=== PATIENT | male | born 1960 | race Caucasian/White ===

== ENCOUNTER 2019-02-06 19:27 | Emergency (ER) | payer OTHER ==
[~2019-02-06] VITALS: Ht 177.8 cm; Wt 104.2 kg
[~2019-02-06 19:27] MED LIST: FOLI1TAB16 PO; FURO20TA4 PO; LACT10SO32 PO; MULT-1085 PO; NADO20TA PO; PANT40TA4 PO; RIFA550T PO; THIA100T66 PO
[2019-02-06] MEDS ORDERED: BISA-155 PO (23:19)
[2019-02-06] MEDS ORDERED: POLY119P2 PO (23:19)
[2019-02-06 23:45] VITALS: BP 139/85
== END 2019-02-06 23:46 | disposition home or self-care (01) ==
LOC: ER 19:30
DX: K59.00 Constipation, unspecified (principal); R10.84 Generalized abdominal pain; I10 Essential (primary) hypertension; F10.10 Alcohol abuse, uncomplicated; Z79.899 Other long term (current) drug therapy; Y90.9 Presence of alcohol in blood, level not specified
CPT/HCPCS: 99284

== ENCOUNTER 2019-02-11 17:21 | Emergency (ER) | payer OTHER ==
[~2019-02-11] VITALS: Ht 177.8 cm; Wt 106.8 kg
[~2019-02-11 17:21] MED LIST changes: +BISA-155 PO; +POLY119P2 PO
[2019-02-11 18:15] LABS: BASOPHILS % (AUTO) 0.7 % (0-1); EOSINOPHILS # (AUTO) 0.2 X10'3 (0-0.9); EOSINOPHILS % (AUTO) 2.8 % (0-6); HEMATOCRIT 32.3 % (42.0-52.0); HEMOGLOBIN 10.9 g/dl (14.0-17.9); LYMPHOCYTES # (AUTO) 1.2 X10'3 (1.1-4.8); LYMPHOCYTES % (AUTO) 16.3 % (21-51); MEAN CORPUSCULAR HEMOGLOBIN 30.4 PG (27.0-31.0); MEAN CORPUSCULAR HGB CONC 33.8 g/dL (33.0-36.5); MEAN CORPUSCULAR VOLUME 90.1 FL (78-98); MEAN PLATELET VOLUME 8.2 FL (7.4-10.4); MONOCYTES # (AUTO) 1.7 X10'3 (0-0.9); MONOCYTES % (AUTO) 22.6 % (2-12); NEUTROPHILS # (AUTO) 4.2 X10'3 (1.8-7.7); NEUTROPHILS % (AUTO) 57.6 % (42-75); PLATELET COUNT 232 X10'3 (140-440); RED BLOOD COUNT 3.59 X10'6 (4.70-6.10); RED CELL DISTRIBUTION WIDTH 15.8 % (11.5-14.5); WHITE BLOOD COUNT 7.3 X10'3 (4.5-11.0)
[2019-02-11 18:24] LABS: CLARITY,URINE CLEAR (Clear); COLOR,URINE STRAW (Yellow); GLUCOSE, URINE NEGATIVE (Neg); KETONES,URINE NEGATIVE (Neg); LEUKOCYTE ESTERASE ,URINE NEGATIVE (Neg); NITRITES, URINE NEGATIVE (Neg); OCCULT BLOOD,URINE NEGATIVE (Neg); PROTEIN,URINE NEGATIVE (Neg); UROBILINOGEN,URINE 0.2 E.U/dL (0.2-1.0)
[2019-02-11 18:28] LABS: ALANINE AMINOTRANSFERASE 60 U/L (12-78); ALBUMIN 2.8 G/DL (3.4-5.0); ALBUMIN/GLOBULIN RATIO 0.7 (1.1-1.5); ALKALINE PHOSPHATASE 63 IU/L (46-116); ANION GAP 12 (8-16); ASPARTATE AMINO TRANSFERASE 57 U/L (10-37); BILIRUBIN,TOTAL 1.3 MG/DL (0.1-1.0); BLOOD UREA NITROGEN 8 MG/DL (7-18); BUN/CREATININE RATIO 7.9 (5.4-32.0); CALCIUM 8.6 MG/DL (8.5-10.1); CHLORIDE 104 MMOL/L (99-107); CREATININE 1.01 MG/DL (0.60-1.10); GLUCOSE 103 MG/DL (70-104); LIPASE 250 U/L (73-393); SODIUM 138 MMOL/L (135-145); TOTAL CARBON DIOXIDE 22.1 MMOL/L (24-32); TOTAL PROTEIN 7.1 G/DL (6.4-8.2); eGFR 76 ML/MIN
[2019-02-11 18:33] LABS: POTASSIUM 2.7 MMOL/L (3.5-5.1)
[2019-02-11 18:43] LABS: UA COLLECTION TYPE CLN CATCH MIDSTREAM
[2019-02-11] MEDS ORDERED: magnesium oxide 400mg tablet PO ONE (18:45)
[2019-02-11] MEDS ORDERED: potassium Cl 20 mEq SR tablet PO ONE (18:45)
[2019-02-11 18:50] LABS: MAGNESIUM 1.7 MG/DL (1.5-2.4)
[2019-02-11 18:52] VITALS: BP 140/84
[2019-02-11] MEDS ORDERED: MAGN200T8 PO (19:22)
[2019-02-11 19:26] LABS: PLATELET ESTIMATE NORMAL; TOTAL CELLS COUNTED 100; TOXIC VACUOLATION 2+
[2019-02-11 19:27] LABS: POLYCHROMASIA 1+
== END 2019-02-11 19:44 | disposition home or self-care (01) ==
LOC: ER 17:22
DX: E87.6 Hypokalemia (principal); E83.42 Hypomagnesemia; I10 Essential (primary) hypertension; Z79.899 Other long term (current) drug therapy
CPT/HCPCS: 36415; 74021; 80053; 81003; 83690; 83735; 85025; 85610; 99284

== ENCOUNTER 2022-12-18 15:34 | Inpatient (IN) | payer OTHER, BC ==
[~2022-12-18] VITALS: Ht 177.8 cm; Wt 109.1 kg
[~2022-12-18 15:34] MED LIST changes: -FOLI1TAB16 PO; +FOLI1TAB27 PO; -LACT10SO32 PO; +LACT10SO78 PO; +MAGN200T8 PO; -NADO20TA PO; +NADO20TA36 PO; -PANT40TA4 PO; +PANT40TA54 PO
[2022-12-18 16:07] LABS: BASOPHILS % (AUTO) 0.4 % (0-1); EOSINOPHILS # (AUTO) 0.1 X10'3 (0-0.9); LYMPHOCYTES # (AUTO) 1.1 X10'3 (1.1-4.8); LYMPHOCYTES % (AUTO) 17.1 % (21-51); MEAN CORPUSCULAR HEMOGLOBIN 23.6 PG (27.0-31.0); MEAN CORPUSCULAR VOLUME 76.2 FL (78-98); MEAN PLATELET VOLUME 7.7 FL (7.4-10.4); MONOCYTES # (AUTO) 0.7 X10'3 (0-0.9); MONOCYTES % (AUTO) 10.7 % (2-12); NEUTROPHILS # (AUTO) 4.7 X10'3 (1.8-7.7); NEUTROPHILS % (AUTO) 70.8 % (42-75); PLATELET COUNT 242 X10'3 (140-440); RED BLOOD COUNT 2.53 X10'6 (4.70-6.10); RED CELL DISTRIBUTION WIDTH 22.6 % (11.5-14.5); WHITE BLOOD COUNT 6.6 X10'3 (4.5-11.0)
[2022-12-18 16:09] LABS: HEMATOCRIT 19.3 % (42.0-52.0)
[2022-12-18 16:19] LABS: ALANINE AMINOTRANSFERASE 18 U/L (12-78); ALBUMIN 3.5 G/DL (3.4-5.0); ALBUMIN/GLOBULIN RATIO 1.1 (1.1-1.5); ALKALINE PHOSPHATASE 75 IU/L (46-116); ANION GAP 9 (8-16); ASPARTATE AMINO TRANSFERASE 10 U/L (10-37); BILIRUBIN,TOTAL 1.1 MG/DL (0.1-1.0); BLOOD UREA NITROGEN 14 MG/DL (7-18); BUN/CREATININE RATIO 12.2 (10.0-20.0); CALCIUM 8.1 MG/DL (8.5-10.1); CHLORIDE 107 MMOL/L (99-107); CREATININE 1.15 MG/DL (0.60-1.10); GLUCOSE 101 MG/DL (70-104); POTASSIUM 3.8 MMOL/L (3.5-5.1); SODIUM 141 MMOL/L (135-145); TOTAL CARBON DIOXIDE 25.5 MMOL/L (24-32); TOTAL PROTEIN 6.6 G/DL (6.4-8.2); eGFR 65 ML/MIN
[2022-12-18 17:03] LABS: PLATELET ESTIMATE NORMAL
[2022-12-18 17:04] LABS: HYPOCHROMASIA 3+
[2022-12-18 17:09] LABS: ANISOCYTOSIS 3+; MICROCYTOSIS 1+; POIKILOCYTOSIS 1+
[2022-12-18 18:53] LABS: OCCULT BLOOD STOOL NEGATIVE (Neg)
[2022-12-18 19:05] LABS: % IRON SATURATION 2 % (11-46); IRON 12 UG/DL (53-167); TOTAL IRON BINDING CAPACITY 509 UG/DL (259-388)
[2022-12-18 19:06] LABS: FERRITIN 5 NG/ML (26-388)
[2022-12-18] MEDS ORDERED: FERR325T28 PO (19:17)
[2022-12-18 19:18] VITALS: BP 120/63
[2022-12-18 19:39] VITALS: BP 118/59
--- NOTE | 2022-12-18 19:43 | NUR ---
PT TOLERATING BLOOD TRANSFUSION WELL; ONE UNIT PRBCS INFUSING WITHOUT COMPLICATION THROUGH 18 G TO LEFT HAND; VSS; NAD; PT VOICES NO COMPLAINTS; RATE STARTED AT 60 ML/HR AND INCREASED AFTER FIRST 15 MIN OF TRANSFUSION TO INFUSE WITHIN TWO HOURS ORDERED; ALL NECESSARY MONITORING EQUIPMENT IN PLACE; BED IN LOW POSITION; SIDE RAILS UP; CALL LIGHT WITHIN REACH; FAMILY AT BEDSIDE; PT STATES NO CURRENT NEEDS
[2022-12-18 20:39] VITALS: BP 118/60
[2022-12-18 21:17] VITALS: BP 133/76
--- NOTE | 2022-12-18 21:36 | NUR ---
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
[2022-12-18 21:43] LABS: BASOPHILS % (AUTO) 0.5 % (0-1); EOSINOPHILS # (AUTO) 0.1 X10'3 (0-0.9); EOSINOPHILS % (AUTO) 1.6 % (0-6); LYMPHOCYTES # (AUTO) 1.1 X10'3 (1.1-4.8); LYMPHOCYTES % (AUTO) 26.8 % (21-51); MEAN CORPUSCULAR HEMOGLOBIN 25.3 PG (27.0-31.0); MEAN CORPUSCULAR HGB CONC 32.7 g/dL (33.0-36.5); MEAN CORPUSCULAR VOLUME 77.3 FL (78-98); MEAN PLATELET VOLUME 7.2 FL (7.4-10.4); MONOCYTES # (AUTO) 0.5 X10'3 (0-0.9); MONOCYTES % (AUTO) 10.8 % (2-12); NEUTROPHILS # (AUTO) 2.5 X10'3 (1.8-7.7); NEUTROPHILS % (AUTO) 60.3 % (42-75); PLATELET COUNT 154 X10'3 (140-440); RED CELL DISTRIBUTION WIDTH 22.2 % (11.5-14.5); WHITE BLOOD COUNT 4.2 X10'3 (4.5-11.0)
[2022-12-18 21:46] LABS: HEMOGLOBIN 6.1 g/dl (14.0-17.9)
[2022-12-18 21:47] LABS: HEMATOCRIT 18.6 % (42.0-52.0)
[2022-12-18 22:29] LABS: MEAN CORPUSCULAR HEMOGLOBIN 24.6 PG (27.0-31.0); MEAN CORPUSCULAR HGB CONC 31.4 g/dL (33.0-36.5); MEAN CORPUSCULAR VOLUME 78.2 FL (78-98); MEAN PLATELET VOLUME 7.4 FL (7.4-10.4); PLATELET COUNT 156 X10'3 (140-440); RED BLOOD COUNT 2.37 X10'6 (4.70-6.10); RED CELL DISTRIBUTION WIDTH 22.4 % (11.5-14.5); WHITE BLOOD COUNT 3.5 X10'3 (4.5-11.0)
[2022-12-18 22:32] LABS: HEMATOCRIT 18.5 % (42.0-52.0); HEMOGLOBIN 5.8 g/dl (14.0-17.9)
[2022-12-18] MEDS ORDERED: octreotide 100mcg/1 ml ampule IV ONE (22:35)
[2022-12-18] MEDS ORDERED: octreotide inj. 1,250 MCG in normal saline 250ml IV soln 250 ML IV SCH (22:35)
[2022-12-18] MEDS ORDERED: pantoprazole 40mg IV 80 MG in normal saline 100ml IV soln 100 ML IV ONE (22:35)
[2022-12-18] MEDS ORDERED: octreotide inj. 1,250 MCG in normal saline 250ml IV soln 243.75 ML IV SCH (22:48)
--- NOTE | 2022-12-18 23:09 | NUR ---
PT TO CT AT THIS TIME
[2022-12-18] MEDS ORDERED: iohexol 350MG/ML 100ml bottle IV ONE (23:27)
[2022-12-18 23:34] VITALS: BP 131/66
[2022-12-18 23:49] VITALS: BP 122/59
--- NOTE | 2022-12-18 23:59 | NUR ---
SECOND UNIT OF BLOOD TRANSFUSING WELL, WITHOUT COMPLICATIONS; STARTED AT 120 ML/HR FOR FIRST 15 MIN AND THEN INCREASED TO INFUSE MORE QUICKLY TOLERATED PER ORDER RECEIVED; PT TOLERATING WELL; VSS; NAD; ALL NECESSARY MONITORING EQUIPMENT IN PLACE
[2022-12-19] VITALS (7 sets, daily range): BP systolic 120–140; BP diastolic 59–78
[2022-12-19 00:28] LABS: ABSOLUTE RETICS # < 6000 /CUMM (23000-93000); RETICULOCYTE % (AUTO) 2.3 % (0.5-1.5)
[2022-12-19] MEDS ORDERED: acetaminophen 325mg tablet PO PRN (00:45)
[2022-12-19] MEDS ORDERED: normal saline 1000ml 1,000 ML IV SCH (00:45)
[2022-12-19] MEDS ORDERED: potassium Cl 40MEQ/1/2NS 520ml 520 ML IV PRN (00:45)
[2022-12-19] MEDS ORDERED: magnesium 4gm in 100ml NS 100 ML IV PRN (00:45)
[2022-12-19] MEDS ORDERED: magnesium hydroxide 30ml (MOM) UD suspension PO PRN (00:45)
[2022-12-19] MEDS ORDERED: magnesium Cl slow-release 64mg tablet PO PRN (00:45)
[2022-12-19] MEDS ORDERED: ondansetron/PF 4mg/2ml inj IV PRN (00:45)
[2022-12-19] MEDS ORDERED: mag hydrox/Alum hydrox/simeth 30ml oral suspension PO PRN (00:45)
[2022-12-19] MEDS ORDERED: magnesium 2GM in 50ml NS 50 ML IV PRN (00:45)
[2022-12-19] MEDS ORDERED: potassium Cl 20 mEq SR tablet PO PRN ×2 (00:45)
[2022-12-19] MEDS ORDERED: pantoprazole 40MG/NS 100ML BAG 100 ML IV SCH (01:00)
--- NOTE | 2022-12-19 02:33 | NUR ---
Received report from CABANA ATTENDANTCORA Dillon. Patient to follow shortly.
[2022-12-19 03:50] LABS: HEMATOCRIT 22.7 % (42.0-52.0); HEMOGLOBIN 7.5 g/dl (14.0-17.9); MEAN CORPUSCULAR HGB CONC 32.8 g/dL (33.0-36.5); MEAN CORPUSCULAR VOLUME 79.2 FL (78-98); MEAN PLATELET VOLUME 7.5 FL (7.4-10.4); PLATELET COUNT 148 X10'3 (140-440); RED BLOOD COUNT 2.87 X10'6 (4.70-6.10); RED CELL DISTRIBUTION WIDTH 20.6 % (11.5-14.5); WHITE BLOOD COUNT 3.6 X10'3 (4.5-11.0)
[2022-12-19 03:55] LABS: MAGNESIUM 1.8 MG/DL (1.5-2.4)
[2022-12-19] MEDS ORDERED: pantoprazole 40 MG/NS 100ML add-vantage BAG IV ONE (05:00)
--- NOTE | 2022-12-19 05:09 | NUR ---
patient arrived to floor at 0300 via gurney from ER. A&O and transferred himself over from rwilson to bed. Denies having any pain or dizziness at this time.
--- NOTE | 2022-12-19 06:30 | NUR ---
Problems reprioritized. Patient report given, questions answered & plan of care reviewed with Kit SHEPHERD.
--- NOTE | 2022-12-19 06:56 | NUR ---
Patient in room [facility]TH[facility] 4009. I have received report from CAROLINE SHEPHERD and had the opportunity to ask questions and assume patient care.
[2022-12-19] MEDS ORDERED: pantoprazole 40mg Tablet.DR PO SCH (07:00)
[2022-12-19] MEDS ORDERED: rifaximin 550mg tablet PO SCH (08:00)
[2022-12-19] MEDS: lactulose 20gm/30ml cup PO SCH ×2 (08:00→08:18)
[2022-12-19] MEDS ORDERED: ferrous sulfate 325mg tablet PO SCH (08:00)
[2022-12-19] MEDS ORDERED: K and/or MAG REPLACEMENT MC SCH (08:00)
[2022-12-19] MEDS ORDERED: furosemide 20MG tablet PO SCH (08:00)
[2022-12-19] MEDS ORDERED: thiamine 100mg tablet PO SCH (08:00)
[2022-12-19] MEDS ORDERED: folic acid 1mg tablet PO SCH (08:00)
[2022-12-19] MEDS ORDERED: metoprolol tartrate 25mg tablet PO SCH (08:00)
[2022-12-19] MEDS ORDERED: docusate sod 100mg capsule PO SCH (08:00)
--- NOTE | 2022-12-19 09:58 | NUR ---
Page Sent PAGER ID: [phone] MESSAGE: [phone] b talia, please call me as soon as you can, pt family does not want pt leaving without having a new h/h done. rell
[2022-12-19 10:30] LABS: HEMATOCRIT 23.8 % (42.0-52.0); HEMOGLOBIN 7.8 g/dl (14.0-17.9); MEAN CORPUSCULAR HEMOGLOBIN 26.1 PG (27.0-31.0); MEAN CORPUSCULAR HGB CONC 32.9 g/dL (33.0-36.5); MEAN CORPUSCULAR VOLUME 79.4 FL (78-98); MEAN PLATELET VOLUME 7.2 FL (7.4-10.4); PLATELET COUNT 171 X10'3 (140-440); RED BLOOD COUNT 2.99 X10'6 (4.70-6.10); RED CELL DISTRIBUTION WIDTH 20.9 % (11.5-14.5); WHITE BLOOD COUNT 4.2 X10'3 (4.5-11.0)
--- NOTE | 2022-12-19 11:41 | NUR ---
pt is stable for dc, iv dc and canula is intact, all dc info gone over and signed, pt took all belongings, pt was walked down by the aide and family and left in a private vehicle with family.
== END 2022-12-19 12:16 | disposition home or self-care (01) | DRG 812 ==
LOC: ER 15:35 → ED HOLD 12-19 00:45 → ORTHO 4S 12-19 02:50
PROVIDERS: ADMIT Internal Medicine; ATTEND Internal Medicine
PROC: 30233N1 Transfusion of Nonautologous Red Blood Cells into Peripheral Vein, Percutaneous Approach (ICD-10-PCS; principal; 2022-12-18)
PROC: B4201ZZ Computerized Tomography (CT Scan) of Abdominal Aorta using Low Osmolar Contrast (ICD-10-PCS; 2022-12-18)
PROC: B4241ZZ Computerized Tomography (CT Scan) of Superior Mesenteric Artery using Low Osmolar Contrast (ICD-10-PCS; 2022-12-18)
PROC: B4281ZZ Computerized Tomography (CT Scan) of Bilateral Renal Arteries using Low Osmolar Contrast (ICD-10-PCS; 2022-12-18)
PROC: B42C1ZZ Computerized Tomography (CT Scan) of Pelvic Arteries using Low Osmolar Contrast (ICD-10-PCS; 2022-12-18)
PROC: B4211ZZ Computerized Tomography (CT Scan) of Celiac Artery using Low Osmolar Contrast (ICD-10-PCS; 2022-12-18)
DX: D50.9 Iron deficiency anemia, unspecified (principal); I10 Essential (primary) hypertension; K74.60 Unspecified cirrhosis of liver; F10.10 Alcohol abuse, uncomplicated; Z79.899 Other long term (current) drug therapy
CPT/HCPCS: 36415; 36430; 71045; 74174; 80053; 82272; 82728; 83540; 83550; 83735; 83880; 84132; 84484; 85008; 85025; 85027; 85045; 85384; 85610; 86885; 86900; 86901; 86920; 87081; 99285; C9113; G0378; J2354; J3490; J7030; J7040; J7050; P9016; Q9967